=== PATIENT | male | born 1975 | race African-American/Black ===

== ENCOUNTER 2017-07-21 10:22 | Inpatient (IN) | payer OTHER ==
[2017-07-21 11:08] VITALS: BMI 21.9
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
[2017-07-21] MEDS ORDERED: hydrOXYzine PAMOATE 25 MG CAPSULE (FP) PO PRN (13:38)
[2017-07-21] MEDS ORDERED: guaiFENesin/D-METHORPHAN HB 10 ML UNIT-DOSE CUPS PO PRN (13:38)
[2017-07-21] MEDS ORDERED: MAG HYDROX/AL HYDROX/SIMETH 30 ML UNIT-DOSE CUP PO PRN (13:38)
[2017-07-21] MEDS ORDERED: ACETAMINOPHEN 325 MG TABLET (FP) PO PRN (13:38)
[2017-07-21] MEDS ORDERED: MENTHOL/PHENOL 1 EACH UD MM PRN (13:38)
[2017-07-21] MEDS ORDERED: chlordiazePOXIDE HCL 25 MG CAPSULE PO PRN (13:38)
[2017-07-21] MEDS ORDERED: P-EPHED 60MG/TRIPROLIDI 2.5MG TABLET PO PRN (13:38)
[2017-07-21] MEDS ORDERED: MAGNESIUM HYDROX 2400MG/30ML ORAL SUSPENSION 30 ML CUP PO PRN (13:38)
[2017-07-21] MEDS ORDERED: LOPERAMIDE HCL 2 MG CAPSULE PO PRN (13:38)
[2017-07-21] MEDS ORDERED: MAGNESIUM CITRATE 300 ML BOTTLE PO PRN (13:38)
[2017-07-21] MEDS ORDERED: chlordiazePOXIDE HCL 25 MG CAPSULE PO ONE (14:30)
[2017-07-21] MEDS: NICOTINE 14 MG/24 HOURS TOPICAL PATCH TD SCH (14:51)
[2017-07-21 17:01] LABS: URINE APPEARANCE CLEAR; URINE BILIRUBIN NEGATIVE (<2.0 mg/dL); URINE BLOOD NEGATIVE (NEGATIVE); URINE COLOR YELLOW; URINE GLUCOSE (UA) NEGATIVE (NEGATIVE); URINE KETONE NEGATIVE (NEGATIVE); URINE LEUK ESTERASE NEGATIVE (NEGATIVE); URINE NITRITE NEGATIVE (NEGATIVE); URINE PROTEIN NEGATIVE (NEGATIVE)
[2017-07-21] MEDS: chlordiazePOXIDE HCL 25 MG CAPSULE PO SCH ×2 (18:03→22:43)
[2017-07-21] MEDS: NICOTINE POLACRILEX 2 MG GUM BUC PRN (20:35)
[2017-07-21] MEDS ORDERED: MELATONIN 5 MG TABLETS PO PRN (22:00)
[2017-07-21] MEDS: THIAMINE HCL 100 MG TABLET (FP) PO SCH (22:43)
[2017-07-21] MEDS: IBUPROFEN 400 MG TABLET (FP) PO PRN (22:45)
[2017-07-22] MEDS: chlordiazePOXIDE HCL 25 MG CAPSULE PO SCH ×4 (05:30→22:31)
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
[2017-07-22 10:31] LABS: HEMATOCRIT 37.6 % (35.4-49); MCHC 31.9 g/dl (32.0-35.9); MEAN CELL VOLUME 87.9 fl (80-96); MEAN PLT VOLUME 8.6 fl (7.5-11.1); PLATELET COUNT 234 K/MM3 (134-434); RBC 4.27 M/mm3 (4.00-5.60); RDW 12.9 % (11.9-15.9); WHITE BLOOD COUNT 5.2 K/mm3 (4.0-10.0)
[2017-07-22] MEDS: PRENATAL VITAMINS W/ FOLIC ACID TABLET (FP) PO SCH (10:35)
[2017-07-22] MEDS: NICOTINE 14 MG/24 HOURS TOPICAL PATCH TD SCH (10:37)
[2017-07-22 10:48] LABS: CHLORIDE 110 mmol/L (98-107); POTASSIUM 4.2 mmol/L (3.5-5.1); SODIUM 143 mmol/L (136-145)
[2017-07-22 10:55] LABS: ALBUMIN 3.2 g/dl (3.4-5.0); ALK PHOS 92 U/L (45-117); ANION GAP 3 (8-16); BILIRUBIN,TOTAL 0.1 mg/dL (0.2-1.0); BLOOD UREA NITROGEN 15 mg/dL (7-18); CALCIUM 8.3 mg/dL (8.5-10.1); CO2 30 mmol/L (21-32); GLUCOSE,RANDOM 82 mg/dL (74-106); SGOT/AST 18 U/L (15-37); SGPT/ALT 28 U/L (12-78); TOT PROT 5.9 g/dl (6.4-8.2)
--- NOTE | 2017-07-22 12:02 | PN ---
[facility] CIWA - CIWA Score Nausea/Vomitin-No Nausea/No Vomiting Muscle Tremors: 4-Moderate,w/Arms Extend Anxiety: 3 Agitation: 3 Paroxysmal Sweats: 1-Minimal Palms Moist Orientation: 1-Uncertain about Date Tacttile Disturbances: 0-None Auditory Disturbances: 0-None Visual Disturbances: 0-None Headache: 1-Very Mild CIWA-Ar Total Score: 13 S Progress Note (SOAP) Subjective: sweat tremor mold restlessness anxiety agitation Objective: 07/22/17 12:01 Vital Signs Temperature 97.5 F L 07/22/17 06:50 Pulse Rate 66 07/22/17 06:50 Respiratory Rate 18 07/22/17 06:50 Blood Pressure 106/75 07/22/17 06:50 O2 Sat by Pulse Oximetry (%) Laboratory Last Values WBC 5.2 K/mm3 (4.0-10.0) 07/22/17 07:30 RBC 4.27 M/mm3 (4.00-5.60) 07/22/17 07:30 Hgb 12.0 GM/dL (11.7-16.9) 07/22/17 07:30 Hct 37.6 % (35.4-49) 07/22/17 07:30 MCV 87.9 fl (80-96) 07/22/17 07:30 MCH 28.0 pg (25.7-33.7) 07/22/17 07:30 MCHC 31.9 g/dl (32.0-35.9) L 07/22/17 07:30 RDW 12.9 % (11.9-15.9) 07/22/17 07:30 Plt Count 234 K/MM3 (134-434) 07/22/17 07:30 MPV 8.6 fl (7.5-11.1) 07/22/17 07:30 Sodium 143 mmol/L (136-145) 07/22/17 07:30 Potassium 4.2 mmol/L (3.5-5.1) 07/22/17 07:30 Chloride 110 mmol/L (98-107) H 07/22/17 07:30 Carbon Dioxide 30 mmol/L (21-32) 07/22/17 07:30 Anion Gap 3 (8-16) L 07/22/17 07:30 BUN 15 mg/dL (7-18) 07/22/17 07:30 Creatinine 1.0 mg/dL (0.7-1.3) 07/22/17 07:30 Creat Clearance w eGFR > 60 (>60) 07/22/17 07:30 Random Glucose 82 mg/dL (74-106) 07/22/17 07:30 Calcium 8.3 mg/dL (8.5-10.1) L 07/22/17 07:30 Total Bilirubin 0.1 mg/dL (0.2-1.0) L D 07/22/17 07:30 AST 18 U/L (15-37) D 07/22/17 07:30 ALT 28 U/L (12-78) D 07/22/17 07:30 Alkaline Phosphatase 92 U/L (45-117) 07/22/17 07:30 Total Protein 5.9 g/dl (6.4-8.2) L 07/22/17 07:30 Albumin 3.2 g/dl (3.4-5.0) L 07/22/17 07:30 Urine Color Yellow 07/21/17 15:00 Urine Appearance Clear 07/21/17 15:00 Urine pH 7.0 (5.0-8.0) 07/21/17 15:00 Ur Specific [place] 1.023 (1.001-1.035) 07/21/17 15:00 Urine Protein Negative (NEGATIVE) 07/21/17 15:00 Urine Glucose (UA) Negative (NEGATIVE) 07/21/17 15:00 Urine Ketones Negative (NEGATIVE) 07/21/17 15:00 Urine Blood Negative (NEGATIVE) 07/21/17 15:00 Urine Nitrite Negative (NEGATIVE) 07/21/17 15:00 Urine Bilirubin Negative (<2.0 mg/dL) 07/21/17 15:00 Urine Urobilinogen 2.0 mg/dL (0.2-1.0) 07/21/17 15:00 Ur Leukocyte Esterase Negative (NEGATIVE) 07/21/17 15:00 RPR Titer Nonreactive (NONREACTIVE) 07/22/17 07:30 lab noted Assessment: 07/22/17 12:01 withdrawal sx Plan: continue detox
[2017-07-22] MEDS: IBUPROFEN 400 MG TABLET (FP) PO PRN (14:09)
[2017-07-22] MEDS: NICOTINE POLACRILEX 2 MG GUM BUC PRN ×3 (14:10→22:46)
[2017-07-22] MEDS: OLANZapine 10 MG TABLET PO SCH (22:31)
[2017-07-22] MEDS: THIAMINE HCL 100 MG TABLET (FP) PO SCH (22:31)
[2017-07-22] MEDS: ZOLPIDEM TARTRATE 5 MG TABLET PO PRN (22:33)
[2017-07-23] MEDS: chlordiazePOXIDE HCL 25 MG CAPSULE PO SCH ×2 (06:34→10:41)
[2017-07-23] MEDS: NICOTINE 14 MG/24 HOURS TOPICAL PATCH TD SCH (10:42)
[2017-07-23] MEDS: PRENATAL VITAMINS W/ FOLIC ACID TABLET (FP) PO SCH (10:42)
--- NOTE | 2017-07-23 10:51 | PN ---
S CIWA - CIWA Score Nausea/Vomitin Muscle Tremors: 3 Anxiety: 3 Agitation: 2 Paroxysmal Sweats: 1-Minimal Palms Moist Orientation: 0-Oriented Tacttile Disturbances: 1-Very Mild Itch/Numbness Auditory Disturbances: 1-Very Mild Visual Disturbances: 0-None Headache: 2-Mild CIWA-Ar Total Score: 16 BHS Progress Note (SOAP) Subjective: ALERT,IRRITABLE,ANXIOUS,INTERRUPTED SLEEP,TREMOR Vital Signs Temperature 97.2 F L 07/23/17 10:14 Pulse Rate 63 07/23/17 10:14 Respiratory Rate 20 07/23/17 10:14 Blood Pressure 127/73 07/23/17 10:14 O2 Sat by Pulse Oximetry (%) Laboratory Last Values WBC 5.2 K/mm3 (4.0-10.0) 07/22/17 07:30 RBC 4.27 M/mm3 (4.00-5.60) 07/22/17 07:30 Hgb 12.0 GM/dL (11.7-16.9) 07/22/17 07:30 Hct 37.6 % (35.4-49) 07/22/17 07:30 MCV 87.9 fl (80-96) 07/22/17 07:30 MCH 28.0 pg (25.7-33.7) 07/22/17 07:30 MCHC 31.9 g/dl (32.0-35.9) L 07/22/17 07:30 RDW 12.9 % (11.9-15.9) 07/22/17 07:30 Plt Count 234 K/MM3 (134-434) 07/22/17 07:30 MPV 8.6 fl (7.5-11.1) 07/22/17 07:30 Sodium 143 mmol/L (136-145) 07/22/17 07:30 Potassium 4.2 mmol/L (3.5-5.1) 07/22/17 07:30 Chloride 110 mmol/L (98-107) H 07/22/17 07:30 Carbon Dioxide 30 mmol/L (21-32) 07/22/17 07:30 Anion Gap 3 (8-16) L 07/22/17 07:30 BUN 15 mg/dL (7-18) 07/22/17 07:30 Creatinine 1.0 mg/dL (0.7-1.3) 07/22/17 07:30 Creat Clearance w eGFR > 60 (>60) 07/22/17 07:30 Random Glucose 82 mg/dL (74-106) 07/22/17 07:30 Calcium 8.3 mg/dL (8.5-10.1) L 07/22/17 07:30 Total Bilirubin 0.1 mg/dL (0.2-1.0) L D 07/22/17 07:30 AST 18 U/L (15-37) D 07/22/17 07:30 ALT 28 U/L (12-78) D 07/22/17 07:30 Alkaline Phosphatase 92 U/L (45-117) 07/22/17 07:30 Total Protein 5.9 g/dl (6.4-8.2) L 07/22/17 07:30 Albumin 3.2 g/dl (3.4-5.0) L 07/22/17 07:30 Urine Color Yellow 07/21/17 15:00 Urine Appearance Clear 07/21/17 15:00 Urine pH 7.0 (5.0-8.0) 07/21/17 15:00 Ur Specific [place] 1.023 (1.001-1.035) 07/21/17 15:00 Urine Protein Negative (NEGATIVE) 07/21/17 15:00 Urine Glucose (UA) Negative (NEGATIVE) 07/21/17 15:00 Urine Ketones Negative (NEGATIVE) 07/21/17 15:00 Urine Blood Negative (NEGATIVE) 07/21/17 15:00 Urine Nitrite Negative (NEGATIVE) 07/21/17 15:00 Urine Bilirubin Negative (<2.0 mg/dL) 07/21/17 15:00 Urine Urobilinogen 2.0 mg/dL (0.2-1.0) 07/21/17 15:00 Ur Leukocyte Esterase Negative (NEGATIVE) 07/21/17 15:00 RPR Titer Nonreactive (NONREACTIVE) 07/22/17 07:30 Objective: 07/23/17 10:50 Vital Signs Temperature 97.2 F L 07/23/17 10:14 Pulse Rate 63 07/23/17 10:14 Respiratory Rate 20 07/23/17 10:14 Blood Pressure 127/73 07/23/17 10:14 O2 Sat by Pulse Oximetry (%) Assessment: 07/23/17 10:51 WITHDRAWAL SYMPTOM Plan: CONTINUE DETOX
--- NOTE | 2017-07-23 12:41 | EKG ---
Test Reason : Blood Pressure : / mmHG Vent. Rate : 061 BPM Atrial Rate : 061 BPM P-R Int : 134 ms QRS Dur : 098 ms QT Int : 406 ms P-R-T Axes : 069 084 073 degrees QTc Int : 408 ms NORMAL SINUS RHYTHM WITH SINUS ARRHYTHMIA EARLY REPOLARIZATION NORMAL ECG NO PREVIOUS ECGS AVAILABLE Confirmed by ANJELICA BARBOSA MD ([id number]) on 07/23/2017 12:40:59 PM Referred By: Confirmed By:ANJELICA BARBOSA MD
[2017-07-23] MEDS: chlordiazePOXIDE 5 MG CAPSULE PO SCH ×2 (17:59→22:23)
[2017-07-23] MEDS: ZOLPIDEM TARTRATE 5 MG TABLET PO PRN (22:22)
[2017-07-23] MEDS: OLANZapine 10 MG TABLET PO SCH (22:22)
[2017-07-23] MEDS: THIAMINE HCL 100 MG TABLET (FP) PO SCH (22:22)
[2017-07-24] MEDS: chlordiazePOXIDE 5 MG CAPSULE PO SCH ×2 (05:49→11:08)
[2017-07-24] MEDS: PRENATAL VITAMINS W/ FOLIC ACID TABLET (FP) PO SCH (11:08)
[2017-07-24] MEDS: NICOTINE 14 MG/24 HOURS TOPICAL PATCH TD SCH (11:10)
[2017-07-24] MEDS: NICOTINE POLACRILEX 2 MG GUM BUC PRN (11:40)
--- NOTE | 2017-07-24 11:51 | PN ---
S Progress Note (SOAP) Subjective: ALERT,IRRITABLE,INTERRUPTED SLEEP Objective: 07/24/17 11:50 Vital Signs Temperature 97.7 F 07/24/17 10:09 Pulse Rate 82 07/24/17 10:09 Respiratory Rate 18 07/24/17 10:09 Blood Pressure 123/79 07/24/17 10:09 O2 Sat by Pulse Oximetry (%) Assessment: 07/24/17 11:50 WITHDRAWAL SYMPTOM Plan: CONTINUE DETOX,DISCHARGE IN AM
[2017-07-24] MEDS: chlordiazePOXIDE HCL 10 MG CAPSULE PO SCH ×2 (17:48→22:31)
[2017-07-24] MEDS: THIAMINE HCL 100 MG TABLET (FP) PO SCH (22:31)
[2017-07-24] MEDS: TOLNAFTATE 1% CREAM 15 GM TUBE TP SCH (22:31)
[2017-07-24] MEDS: OLANZapine 10 MG TABLET PO SCH (22:31)
[2017-07-24] MEDS: ZOLPIDEM TARTRATE 5 MG TABLET PO PRN (22:31)
[2017-07-25] MEDS: chlordiazePOXIDE HCL 10 MG CAPSULE PO SCH ×2 (05:59→12:02)
[2017-07-25] MEDS: NICOTINE POLACRILEX 2 MG GUM BUC PRN ×2 (06:02→10:39)
--- NOTE | 2017-07-25 08:31 | PN ---
S Progress Note (SOAP) Subjective: ALERT,NO COMPLAINT Objective: 07/25/17 08:29 Vital Signs Temperature 96.6 F L 07/25/17 06:00 Pulse Rate 78 07/25/17 06:00 Respiratory Rate 18 07/25/17 06:00 Blood Pressure 115/67 07/25/17 06:00 O2 Sat by Pulse Oximetry (%) Assessment: 07/25/17 08:30 DETOX COMPLETED,NO WITHDRAWAL SYMPTOM Plan: DISCHARGE TODAY,FOLLOW UP WITH AFTER CARE PROGRAM ARRANGEMENT
--- NOTE | 2017-07-25 08:34 | DS ---
[facility] Detox Discharge Summary Admission Date: 07/21/17 Discharge Date: 07/25/17 - History Present History: Alcohol Dependence, Cannabis Dependence, Cocaine Dependence Additional Comments: FOLLOW UP WITH AFTER CARE PROGRAM ARRANGEMENT Pertinent Past History: CHRONIC LOW BACK PAIN NICOTINE DEPENDENCE - Physical Exam Results Vital Signs: Vital Signs Temperature 96.6 F L 07/25/17 06:00 Pulse Rate 78 07/25/17 06:00 Respiratory Rate 18 07/25/17 06:00 Blood Pressure 115/67 07/25/17 06:00 O2 Sat by Pulse Oximetry (%) Pertinent Admission Physical Exam Findings: WITHDRAWAL SIGNS AND SYMPTOM - Treatment Hospital Course: Detox Protocol Followed, Detoxed Safely, Responded well, Discharged Condition Good, Rehab Referral Accepted Patient has Accepted a Rehab Referral to: [facility] - Medication Discharge Medications: Ambulatory Orders Olanzapine [Zyprexa] 10 mg PO BID 07/21/17 Oxycodone HCl/Acetaminophen [Percocet 10-325 mg Tablet] 1 each PO TID PRN - Diagnosis (1) Alcohol dependence with uncomplicated withdrawal Current Visit: Yes Status: Acute (2) Cannabis dependence Current Visit: Yes Status: Acute (3) Cocaine dependence Current Visit: Yes Status: Acute Qualifiers: Substance use status: uncomplicated Qualified Code(s): F14.20 - Cocaine dependence, uncomplicated (4) Chronic back pain Current Visit: Yes Status: Chronic Qualifiers: Back pain location: low back pain Back pain laterality: bilateral Sciatica presence: without sciatica Qualified Code(s): M54.5 - Low back pain; G89.29 - Other chronic pain; G89.29 - Other chronic pain (5) Nicotine dependence Current Visit: Yes Status: Chronic Qualifiers: Nicotine product type: cigarettes Substance use status: uncomplicated Qualified Code(s): F17.210 - Nicotine dependence, cigarettes, uncomplicated - AMA Did Patient Leave Against Medical Advice: No
[2017-07-25 10:26] VITALS: BP 117/75; PULSE 84; TEMP 98.1
[2017-07-25] MEDS: NICOTINE 14 MG/24 HOURS TOPICAL PATCH TD SCH (10:38)
[2017-07-25] MEDS: PRENATAL VITAMINS W/ FOLIC ACID TABLET (FP) PO SCH (10:38)
[2017-07-25] MEDS: TOLNAFTATE 1% CREAM 15 GM TUBE TP SCH (10:38)
== END 2017-07-25 12:40 | disposition other institution (70) | DRG 774 ==
LOC: YASAS 10:22 → Y6N 13:53
PROVIDERS: ADMIT Internal Medicine; ATTEND Internal Medicine
PROC: HZ2ZZZZ Detoxification Services for Substance Abuse Treatment (ICD-10-PCS; principal; 2017-07-21)
DX: F14.20 Cocaine dependence, uncomplicated (principal); F12.20 Cannabis dependence, uncomplicated; F17.210 Nicotine dependence, cigarettes, uncomplicated; F20.9 Schizophrenia, unspecified; F19.280 Other psychoactive substance dependence with psychoactive substance-induced anxiety disorder; F19.282 Other psychoactive substance dependence with psychoactive substance-induced sleep disorder; M51.37 Other intervertebral disc degeneration, lumbosacral region; M54.5 Low back pain; G89.29 Other chronic pain; Z86.19 Personal history of other infectious and parasitic diseases; Z59.0 Homelessness
CPT/HCPCS: 36415; 80053; 81003; 85027; 86593; 93005; 93010

== ENCOUNTER 2017-07-25 12:59 | Inpatient (IN) | payer OTHER ==
[2017-07-25] MEDS ORDERED: MENTHOL/PHENOL 1 EACH UD MM PRN (14:18)
[2017-07-25] MEDS ORDERED: LOPERAMIDE HCL 2 MG CAPSULE PO PRN (14:18)
[2017-07-25] MEDS ORDERED: MAGNESIUM CITRATE 300 ML BOTTLE PO PRN (14:18)
[2017-07-25] MEDS ORDERED: hydrOXYzine PAMOATE 50 MG CAPSULE (FP) PO PRN (14:18)
[2017-07-25] MEDS ORDERED: P-EPHED 60MG/TRIPROLIDI 2.5MG TABLET PO PRN (14:18)
[2017-07-25] MEDS ORDERED: ACETAMINOPHEN 325 MG TABLET (FP) PO PRN (14:18)
[2017-07-25] MEDS ORDERED: MAG HYDROX/AL HYDROX/SIMETH 30 ML UNIT-DOSE CUP PO PRN (14:18)
[2017-07-25] MEDS ORDERED: IBUPROFEN 400 MG TABLET (FP) PO PRN (14:18)
[2017-07-25] MEDS ORDERED: MAGNESIUM HYDROX 2400MG/30ML ORAL SUSPENSION 30 ML CUP PO PRN (14:18)
[2017-07-25] MEDS ORDERED: guaiFENesin/D-METHORPHAN HB 10 ML UNIT-DOSE CUPS PO PRN (14:18)
--- NOTE | 2017-07-25 15:30 | PN ---
[facility] Progress Note Note: Patient presents with anxiety and mild agitation. Has history of ETOH withdrawal. Also requesting water pitcher at bedside. Pt informed of withdrawal symptoms and current as needed orders to help with symptoms. Pt to continue with Vistaril prn. Water pitcher ordered. In no acute distress. Will continue to monitor clinically.
[2017-07-25 16:11] VITALS: BP 136/77; PULSE 99; TEMP 98.9
--- NOTE | 2017-07-25 18:33 | PN ---
[facility] Progress Note Note: called by nurse to enter the order for zyprexa for this patient , reviewed medical record patient was seen by Dr Aguero on 07/22 and was continued zyprexa 10, place order , psychiatric evaluation in am
[2017-07-25] MEDS ORDERED: OLANZapine 10 MG TABLET PO SCH (22:00)
[2017-07-25] MEDS ORDERED: MELATONIN 5 MG TABLETS PO PRN (22:00)
[2017-07-25] MEDS ORDERED: THIAMINE HCL 100 MG TABLET (FP) PO SCH (22:00)
--- NOTE | 2017-07-26 09:57 | PN ---
S Progress Note Note: it was reported that patient left AMA treatment on 07/25/17 in evening shift, please see medical staff notes.
[2017-07-26] MEDS ORDERED: PRENATAL VITAMINS W/ FOLIC ACID TABLET (FP) PO SCH (10:00)
== END 2017-07-25 22:05 | disposition left against medical advice (07) | DRG 861 ==
LOC: YASAS 12:59 → Y5N 13:00
PROVIDERS: ADMIT Psychiatry & Neurology Psychiatry; ATTEND Psychiatry & Neurology Psychiatry
PROC: HZ2ZZZZ Detoxification Services for Substance Abuse Treatment (ICD-10-PCS; principal; 2017-07-25)
DX: Z59.0 Homelessness (principal)

== ENCOUNTER 2019-12-29 21:15 | Emergency (ER) | payer OTHER ==
--- NOTE | 2019-12-29 21:29 | PDOC ---
Rapid Medical Evaluation Time Seen by Provider: 12/29/19 21:22 Medical Evaluation: Allergies Allergy/AdvReac Type Severity Reaction Status Date / Time haloperidol [From Haldol] AdvReac Intermediate Verified 02/21/18 11:41 12/29/19 21:22 Pt presents for numbness to his arms and legs for 4 days. States he was arrested 4 days ago and brought to [facility] and had a negative head CT. States he still has numbness to the arms and feet. Exam: NAD, ambulatory Orders; defer to provider Pt to proceed to the ER for further evaluation Discharge Disposition - Diagnosis Numbness - Referrals - Patient Instructions - Post Discharge Activity
[2019-12-29 21:31] VITALS: BMI 22.8
--- NOTE | 2019-12-29 22:54 | PDOC ---
*Physical Exam - Vital Signs Last Vital Signs Temp Pulse Resp BP Pulse Ox 97.5 F L 67 20 113/71 97 12/29/19 21:22 12/29/19 21:22 12/29/19 21:22 12/29/19 21:22 12/29/19 21:22 Medical Decision Making - Medical Decision Making 12/29/19 22:53 Patient seen by the advanced practice provider under my supervision. Ancillary testing reviewed as necessary. I agree with plan as outlined by the advanced practice provider. Discharge - Discharge Information Clinical Impression/Diagnosis: Numbness - Follow up/Referral Referrals: Colton Garcia [Primary Care Provider] - - Patient Discharge Instructions - Post Discharge Activity
[2019-12-29] MEDS ORDERED: ACETAMINOPHEN 500 MG TABLET (FP) PO ONE (22:56)
[2019-12-29] MEDS ORDERED: ACETAMINOPHEN 325 MG TABLET (FP) ONE (23:36)
[2019-12-29 23:40] LABS: BASO % 0.7 % (0-2.0); EOS % 1.9 % (0-4.5); LYMPH % 42.4 % (8-40); MCH 29.2 pg (25.7-33.7); MCHC 33.3 g/dl (32.0-35.9); MEAN CELL VOLUME 87.7 fl (80-96); MEAN PLT VOLUME 8.5 fl (7.5-11.1); MONO % 9.1 % (3.8-10.2); NEUT % 45.9 % (42.8-82.8); PLATELET COUNT 219 K/MM3 (134-434); RBC 3.76 M/mm3 (4.00-5.60); RDW 12.3 % (11.9-15.9)
[2019-12-30 00:11] LABS: ALBUMIN 3.5 g/dl (3.4-5.0); BILIRUBIN,TOTAL 0.5 mg/dL (0.2-1); CALCIUM 8.4 mg/dL (8.5-10.1); CREATININE 1.2 mg/dL (0.55-1.3); POTASSIUM 3.9 mmol/L (3.5-5.1); TOT PROT 6.5 g/dl (6.4-8.2)
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
[2019-12-30 04:00] VITALS: BP 120/84; PULSE 62; TEMP 98
== END 2019-12-30 03:32 | disposition home or self-care (01) ==
LOC: JER 21:15
DX: S02.40FA Zygomatic fracture, left side, initial encounter for closed fracture (principal); S09.90XA Unspecified injury of head, initial encounter
CPT/HCPCS: 36415; 70450-TC; 70486-TC; 71260-TC; 72125-TC; 80053; 85025; 99285-25